=== PATIENT | male | born 1965 | race Caucasian/White ===

== ENCOUNTER 2024-04-24 06:09 | Day surgery (SDC) | payer OTHER, SELFPAY ==
[2024-04-10 08:58] LABS: Hematocrit 44.3 % (39.0-52.0); Hemoglobin 16.1 g/dL (13.0-18.0); Mean Corp Hgb Conc. 36.3 g/dL (33.0-37.0); Mean Corpuscular Hgb 33.3 pg (27.0-31.0); Mean Corpuscular Volume 91.5 fL (80.0-94.0); Platelet Count 184 10^3/uL (130-400); Red Blood Cell Count 4.84 10^6/uL (4.70-6.10); Red Cell Dist. Width 13.3 % (11.5-14.5)
[2024-04-10 09:45] LABS: Glycohemoglobin (HgbA1c) 6.2 % (4.0-5.6)
[2024-04-10 10:12] LABS: Blood Urea Nitrogen 16 mg/dl (9-20); Calcium 9.5 mg/dl (8.4-10.2); Carbon Dioxide 28 mmol/L (22-30); Chloride 102 mmol/L (98-107); Glucose 132 mg/dl (70-99); HDL Cholesterol 41 mg/dl; Iron 117 ug/dl (49-181); LDL Cholesterol, Calculated 63 mg/dl; Potassium 4.3 mmol/L (3.5-5.1); Sodium 138 mmol/L (135-145); Total Cholesterol 127 mg/dl (50-199); Triglyceride 116 mg/dl (10-149); Very Low Density Lipoprotein 23 mg/dl (0-30); eGFR > 60.00
[2024-04-10 10:18] VITALS: BMI 40.0
[2024-04-24] VITALS (8 sets, daily range): BP systolic 116–138; BP diastolic 51–75; BMI 40.0
--- NOTE | 2024-04-24 06:38 | W.SUR.PREOP ---
Pre-Operative Surgical Note
-
I have examined this patient prior to the performance of the scheduled procedure.
The patient's condition is unchanged from the time of the current History and
Physical and the patient is able to undergo the scheduled procedure.
[2024-04-24] MEDS: NORMOSOL-R 1000 IV (06:39)
[2024-04-24] MEDS: TYLENOL 1000 MG PO (06:39)
--- NOTE | 2024-04-24 09:14 | W.IMMPOSTOP ---
Addendum entered and electronically signed by Quang De Souza MD 04/24/24 09:22:
#[id number]
Original Note:
Surgical Immed Post Op Note
-
Primary Surgeon: Ap
Assisting Surgeon: Irwin NEVAREZ
Pre-op Diagnosis: Umbilical hernia
Post-op Diagnosis: Umbilical hernia, 3 cm
Procedure Performed: Robotic assisted laparoscopic KISHA repair of umbilical hernia with mesh; Bard soft 15 x 15 cm
Anesthesia Type: GETA +0.25% Marcaine with epinephrine
Specimen / Cultures: None
Estimated Blood Loss: 6 mL
Complications: None immediate
Operative Findings: Umbilical hernia with omental adhesions released. Fascial defect approximately 3 cm. Transabdominal preperitoneal repair with underlay mesh. Fascial defect closed with 0 PDS Stratafix. Bard soft mesh 15 x 15 cm secured with
interrupted 2-0 Vicryl. Peritoneal flap closed with 2-0 Monocryl Stratafix spiral.
== END 2024-04-24 10:48 | disposition home or self-care (01) ==
LOC: SDS 06:09
PROVIDERS: ATTENDING PHYSICIAN Surgery; FAMILY PHYSICIAN Family Medicine
PROC: 8E0W4CZ Robotic Assisted Procedure of Trunk Region, Percutaneous Endoscopic Approach (ICD-10-PCS; 2024-04-24)
PROC: 0WUF4JZ Supplement Abdominal Wall with Synthetic Substitute, Percutaneous Endoscopic Approach (ICD-10-PCS; 2024-04-24)
DX: K42.9 Umbilical hernia without obstruction or gangrene (principal)
CPT/HCPCS: 49593; 36415; 80048; 80061; 83036; 83540; 85027; C1781

== ENCOUNTER → 2024-12-28 13:13 | Outpatient (REF) | payer OTHER, SELFPAY | LOC: HWRAD 13:13 | PROVIDERS: ATTENDING PHYSICIAN Family Medicine | DX: R41.3 Other amnesia (principal); R47.89 Other speech disturbances; S09.90XA Unspecified injury of head, initial encounter; I65.23 Occlusion and stenosis of bilateral carotid arteries | CPT/HCPCS: 70450; 93880 ==

== ENCOUNTER → 2025-03-02 15:11 | Outpatient (REF) | payer OTHER, SELFPAY | LOC: PAVMRI 15:11 | PROVIDERS: ATTENDING PHYSICIAN Physician Assistant Surgical; FAMILY PHYSICIAN Family Medicine | DX: M48.062 Spinal stenosis, lumbar region with neurogenic claudication (principal); M54.50 Low back pain, unspecified; M54.16 Radiculopathy, lumbar region | CPT/HCPCS: 72148 ==

== ENCOUNTER 2025-06-23 06:07 | Day surgery (SDC) | payer OTHER, SELFPAY ==
[2025-06-09 14:13] LABS: Hematocrit 46.6 % (39.0-52.0); Hemoglobin 16.2 g/dL (13.0-18.0); Mean Corp Hgb Conc. 34.8 g/dL (33.0-37.0); Mean Corpuscular Volume 93.2 fL (80.0-94.0); Platelet Count 171 10^3/uL (130-400); Red Cell Dist. Width 12.8 % (11.5-14.5)
[2025-06-09 14:22] VITALS: BMI 41.2
[2025-06-09 14:27] LABS: Alkaline Phosphatase 86 U/L (38-126); Blood Urea Nitrogen 18 mg/dl (9-20); Calcium 9.6 mg/dl (8.4-10.2); Carbon Dioxide 31 mmol/L (22-30); Chloride 104 mmol/L (98-107); Estimated Creatinine Clearance 98 ml/min; Glucose 128 mg/dl (70-99); Potassium 5.1 mmol/L (3.5-5.1); Sodium 142 mmol/L (135-145); eGFR > 60.00
[2025-06-09 14:28] LABS: ALT (SGPT) 51 U/L (0-50); AST (SGOT) 37 U/L (17-59); Albumin 4.7 g/dl (3.5-5.0); Total Protein 7.2 g/dl (6.3-8.2)
--- NOTE | 2025-06-09 15:08 | PTCARENOTE ---
Abnormal ECG done 06/09/[address] Quevedo, no further intervention requested.
[2025-06-18 13:05] VITALS: BMI 41.2
[2025-06-23] VITALS (20 sets, daily range): BP systolic 3–152; BP diastolic 59–125
[2025-06-23] MEDS: CELEBREX 200 MG PO (10:06)
[2025-06-23] MEDS: TYLENOL 1000 MG PO ×3 (10:06→21:16)
[2025-06-23] MEDS: LYRICA 150 MG PO (10:06)
[2025-06-23] MEDS: METHOCARBAMOL 1500 MG PO (10:06)
[2025-06-23] MEDS: NORMOSOL-R/PLASMALYTE-A 1000 IV ×2 (10:17→16:04)
--- NOTE | 2025-06-23 14:29 | W.PN.UPDATE ---
Update Note
Progress Note Update
Lumbar stenosis w/ neurogenic claudication s/p L3-L5 Lami, L3-L4 Excision of Mass w/ Dr Sortou 06/23/25
DVT prophylaxis - b/l SCDs/TEDs
HTN - + parameters - monitor BP
CAD s/p CABG 2022 - resume ASA POD 5 if hemodynamically stable
MARIANELA, compliant w/ CPAP - monitor O2
- IS
- Continue CPAP HS
NIDDM, diet controlled, recent A1c reportedly 7.1 - monitor BS
- Add SSI AC, low dose Lantus to accommodate for potential post-surgical BS elevations
- Diabetic, carb controlled diet
BPH w/ urinary retention - monitor voids
- Add daily Flomax. Consider BID dosing
- Bladder scan/straight cath prn
Hypercholesterolemia
FLD
OA
Morbid obesity, BMI 41.2
[2025-06-23] MEDS: FLOMAX 0.4 MG PO (16:02)
[2025-06-23] MEDS: ULTRAM 50 MG PO ×2 (16:02→21:16)
[2025-06-23 17:44] LABS: Glucose - Point of Care 218 mg/dl (70-99)
[2025-06-23] MEDS: NOVOLOG FLEXPEN-MODERATE RESISTANCE 3 UNITS SC (17:51)
[2025-06-23] MEDS: LIPITOR 80 MG PO (17:51)
--- NOTE | 2025-06-23 18:17 | PTCARENOTE ---
Pt arrived to [facility] s/p L3-L5 lami. Lower back incision with gauze and tegaderm c/d/i. Hemovac with sanguineous drainage. 98% on RA. DTV. OOB with back brace. Teds/scds on pt. Admission questions answered. bed locked and in lowest position. Care
ongoing.
[2025-06-23] MEDS: ROXICODONE 5 MG PO (18:30)
[2025-06-23] MEDS: ANCEF 5 IV (19:32)
[2025-06-23] MEDS: COLACE 100 MG PO (19:32)
[2025-06-23] MEDS: SENOKOT 17.2 MG PO (19:32)
[2025-06-23] MEDS: LOPRESSOR 50 MG PO (19:33)
[2025-06-23] MEDS: LANTUS 0.05 UNITS SC (21:15)
[2025-06-23] MEDS: LYRICA 75 MG PO (21:16)
[2025-06-23] MEDS: PEPCID 20 MG PO (21:16)
[2025-06-23 21:21] LABS: Glucose - Point of Care 247 mg/dl (70-99)
[2025-06-24] MEDS: NORMOSOL-R/PLASMALYTE-A 1000 IV (01:47)
[2025-06-24 03:00] VITALS: BP 103/53
[2025-06-24] MEDS: TYLENOL 1000 MG PO ×2 (03:26→10:43)
[2025-06-24] MEDS: ULTRAM 50 MG PO ×2 (03:26→10:43)
[2025-06-24] MEDS: ANCEF 5 IV (03:26)
[2025-06-24 06:41] LABS: Blood Urea Nitrogen 19 mg/dl (9-20); Calcium 8.4 mg/dl (8.4-10.2); Carbon Dioxide 28 mmol/L (22-30); Chloride 106 mmol/L (98-107); Estimated Creatinine Clearance 118 ml/min; Glucose 196 mg/dl (70-99); Potassium 4.5 mmol/L (3.5-5.1); Sodium 140 mmol/L (135-145); eGFR > 60.00
[2025-06-24 07:25] VITALS: BP 119/72
[2025-06-24 07:31] LABS: Glucose - Point of Care 182 mg/dl (70-99)
[2025-06-24] MEDS: NOVOLOG FLEXPEN-MODERATE RESISTANCE 1 UNITS SC (08:04)
[2025-06-24] MEDS: NOVOLOG FLEXPEN 2 UNITS SC (08:05)
[2025-06-24] MEDS: COLACE 100 MG PO (08:07)
[2025-06-24] MEDS: SENOKOT 17.2 MG PO (08:07)
[2025-06-24] MEDS: FLOMAX 0.4 MG PO (08:07)
[2025-06-24] MEDS: LOPRESSOR 50 MG PO (08:08)
[2025-06-24] MEDS: ROXICODONE 5 MG PO (08:13)
--- NOTE | 2025-06-24 09:47 | CM ---
CM met with patient in room. Patient lives independently. Family available for support.
PLAN: Home no needs.
--- NOTE | 2025-06-24 09:58 | W.PN.ORTHO ---
Today's Communication / Plan
-
D/c today since clinically stable, did well w/ PT and OT.
Assessment
.
Distal Motor Intact: Yes
Dressing:
Minimal incisional bleeding noted from drain site. Drain pulled this AM.
Assessment:
Lumbar stenosis w/ neurogenic claudication s/p L3-L5 Lami, L3-L4 Excision of Mass w/ [facility] 06/23/25
DVT prophylaxis - b/l SCDs/TEDs
+ Hemovac drain - <100 cc overnight - pull drain
HTN - + parameters - BPs stable overall
CAD s/p CABG 2022 - resume ASA POD 5 since hemodynamically stable
MARIANELA, compliant w/ CPAP - O2 stable on RA
- IS
- Continue CPAP HS
NIDDM, diet controlled, recent A1c reportedly 7.1 - BS readings mildly elevated post-op d/t surgical stress, IV steroids in OR
- BS readings expected to improve overall w/ continuation of diabetic, carb controlled diet
- Added SSI AC, low dose Lantus to accommodate for potential post-surgical BS elevations during admission
BPH w/ urinary retention - voiding appropriately prior to d/c. No need to continue to continue Flomax upon d/c
- Daily Flomax during admission. Consider BID dosing
- Bladder scan/straight cath prn
Hypercholesterolemia
FLD
OA
Morbid obesity, BMI 41.2
Plan
.
Surgery / Date: L3-L5 Lami, L3-L4 Excision of Mass w/ [facility] 06/23
DVT Prophylaxis: Other (b/l SCDs/TEDS)
Activity:
Out of bed.
PT/OT
Discharge Plan: Home
Subjective
.
.:
Patient resting comfortably in chair.
Pain well controlled w/ current pain meds.
Denies any new significant complaints.
AM labs overall stable.
Eager for potential d/c today.
Vital Signs and Labs
.
Vital Signs and Labs:
Lab Results
06/24/25 05:33
Temp Pulse Resp BP Pulse Ox
97.6 F 69 18 119/72 99
06/24/25 07:25 06/24/25 08:08 06/24/25 07:25 06/24/25 08:08 06/24/25 07:25
Physical Exam
-
HEENT: No pallor, cyanosis, or jaundice. Throat clear.
NECK: Supple. No JVD.
RESPIRATORY: Lungs clear to auscultation.
CVS: S1, S2 normal. RRR.�
ABDOMEN: Soft, non-tender. No distension. Morbidly obese.
EXTREMITIES: Strength equal, no calf pain with palpation/dorsiflexion. Calves soft.
TOY MAKER: AOx3. No focal deficits. head bone grinder grossly intact
[2025-06-24 10:09] LABS: Hematocrit 41.4 % (39.0-52.0); Hemoglobin 14.5 g/dL (13.0-18.0)
--- NOTE | 2025-06-24 10:12 | W.DS.TRANS ---
DC Summary - [facility]
-
Discharge Instructions:
Discharge Diagnosis/Procedures Lumbar stenosis w/ neurogenic claudication s/p
L3-L5 Lami, L3-L4 Excision of Mass w/ Dr Sortou
Diet Diabetic, Carb Controlled
Additional Diets Adequate hydration and minimize opioids to
prevent low blood pressure/dizziness.
Activity As tolerated
Additional Activity No heavy lifting >10 lbs
Driving Restrictions Not until seen by your Dr
Bathing Restrictions OK to shower in 4 days
Instructions:
Stand-Alone Forms: [facility].
Changes to Home Medications: Yes
Discharge Medications:
DC Medications w/original date entered in [facility]
aspirin 81 mg tablet,delayed release 81 mg PO DAILY Blood Clot Prevention/Tx 02/20/22
Held on 06/24/25. Instructions: Resume on 06/28/25.
multivitamin 1 ea PO DAILY Supplement 02/20/22
atorvastatin 80 mg tablet 80 mg PO QPM #90 tabs 04/02/23
metoprolol tartrate 50 mg tablet 50 mg PO BID 04/10/24
Saccharomyces boulardii 250 mg capsule (Florastor) 250 mg PO BID #10 caps 06/24/25
acetaminophen 500 mg tablet (Tylenol Extra Strength) 1,000 mg (2 x 500 mg) PO Q6H #60 tabs 06/24/25
cephalexin 500 mg capsule 500 mg PO Q6H #20 caps 06/24/25
docusate sodium 100 mg capsule 100 mg PO BID #30 caps 06/24/25
famotidine 20 mg tablet 20 mg PO HS #30 tabs 06/24/25
magnesium hydroxide 400 mg/5 mL oral suspension (Milk of Magnesia) 30 ml PO HS PRN constipation #3,780 mL 06/24/25
ondansetron HCl 4 mg tablet 4 mg PO Q6H PRN nausea and vomiting #30 tabs 06/24/25
oxycodone 5 mg tablet 5 - 10 mg (1 - 2 x 5 mg) PO Q6H PRN moderate-severe pain #30 tabs 06/24/25
pregabalin 75 mg capsule 75 mg PO BID neuropathic pain #15 caps 06/24/25
sennosides 8.6 mg tablet (Lashanda-aby) 17.2 mg (2 x 8.6 mg) PO BID #30 tabs 06/24/25
Home Medication Changes
Saccharomyces boulardii 250 mg capsule (Florastor) 250 mg PO BID #10 caps 06/24/25
acetaminophen 500 mg tablet (Tylenol Extra Strength) 1,000 mg (2 x 500 mg) PO Q6H #60 tabs 06/24/25
cephalexin 500 mg capsule 500 mg PO Q6H #20 caps 06/24/25
docusate sodium 100 mg capsule 100 mg PO BID #30 caps 06/24/25
famotidine 20 mg tablet 20 mg PO HS #30 tabs 06/24/25
magnesium hydroxide 400 mg/5 mL oral suspension (Milk of Magnesia) 30 ml PO HS PRN constipation #3,780 mL 06/24/25
ondansetron HCl 4 mg tablet 4 mg PO Q6H PRN nausea and vomiting #30 tabs 06/24/25
oxycodone 5 mg tablet 5 - 10 mg (1 - 2 x 5 mg) PO Q6H PRN moderate-severe pain #30 tabs 06/24/25
pregabalin 75 mg capsule 75 mg PO BID neuropathic pain #15 caps 06/24/25
sennosides 8.6 mg tablet (Lashanda-aby) 17.2 mg (2 x 8.6 mg) PO BID #30 tabs 06/24/25
Pending Results: No
[2025-06-24] MEDS: LYRICA 75 MG PO (10:43)
[2025-06-24 10:50] VITALS: BP 132/70
[2025-06-24 10:57] VITALS: BP 117/65
[2025-06-24] MEDS: NORMOSOL-R/PLASMALYTE-A IV (10:59)
[2025-06-24 11:01] VITALS: BP 119/66; PULSE 53; O2SAT 98
[2025-06-24 19:28] LABS: Hepatitis C Antibody Negative (Negative)
== END 2025-06-24 12:25 | disposition home or self-care (01) ==
LOC: SDS 06:07
PROVIDERS: Physician Assistant; ATTENDING PHYSICIAN Orthopaedic Surgery Orthopaedic Surgery of the Spine; FAMILY PHYSICIAN Family Medicine; OTHER PHYSICIAN Internal Medicine Cardiovascular Disease
DX: M48.062 Spinal stenosis, lumbar region with neurogenic claudication (principal); E66.01 Morbid (severe) obesity due to excess calories; Z68.41 Body mass index [BMI] 40.0-44.9, adult
CPT/HCPCS: 63047; 36415; 72020; 80048; 80053; 82962; 85014; 85018; 85027; 86803; 87070; 88304; 88311; 93005; 97116; 97162; 97167; C1729

== ENCOUNTER → 2025-08-16 19:34 | Outpatient (REF) | payer OTHER, SELFPAY | LOC: PAVMRI 19:34 | PROVIDERS: ATTENDING PHYSICIAN Nurse Practitioner; FAMILY PHYSICIAN Family Medicine | DX: R41.3 Other amnesia (principal) | CPT/HCPCS: 70551 ==

== ENCOUNTER 2025-08-18 17:57 | Outpatient (RCR) | payer OTHER, SELFPAY | END 2025-08-18 23:59 | disposition home or self-care (01) | LOC: RPT 17:57 | PROVIDERS: ATTENDING PHYSICIAN Orthopaedic Surgery Orthopaedic Surgery of the Spine; FAMILY PHYSICIAN Family Medicine | DX: Z47.89 Encounter for other orthopedic aftercare (principal); M48.062 Spinal stenosis, lumbar region with neurogenic claudication; Z73.6 Limitation of activities due to disability; R26.2 Difficulty in walking, not elsewhere classified; M62.81 Muscle weakness (generalized); R26.89 Other abnormalities of gait and mobility | CPT/HCPCS: 97110; 97112; 97162 ==